=== PATIENT | male | born 1975 | race Caucasian/White ===

== ENCOUNTER → 2020-11-12 15:17 | Outpatient (CLI) | payer OTHER, SELFPAY ==
--- NOTE | ~2020-11-12 | XR_ITS ---
EXAMINATION: XR hip RT min 3V w AP pelvis INDICATION: Right hip pain TECHNIQUE: AP view the pelvis and two views of the right hip are obtained. COMPARISON: None available FINDINGS: Bone alignment is normal. There is no fracture. There is mild osteoarthritis of the hips.Th e soft tissues are unremarkable. IMPRESSION: 1. No acute osseous abnormality. Reviewed, dictated and finalized at location A.
== END ==
PROVIDERS: PCP Family Medicine; Visit Provider Family Medicine
DX: M25.559 Pain in unspecified hip (principal)
CPT/HCPCS: 73502

== ENCOUNTER 2023-12-31 17:42 | Emergency (ER) | payer OTHER, SELFPAY ==
[2023-12-31 18:08] VITALS: BP 136/74; PULSE 92; RESP 17; TEMP 36.3; O2SAT 99
[2023-12-31] MEDS: diazePAM INJ (*CRX) 10 MG/2 ML SYRINGE 5 MG IM (19:28)
--- NOTE | 2023-12-31 19:28 | ED.NECK ---
HPI - Neck Pain/Injury General Chief Complaint: Neck Pain/Injury Stated Complaint: PULLED MUSCLE IN MY HEAD Time Seen by Provider: 12/31/23 19:04 History of Present Illness HPI Narrative: patient has history of muscle spasms, woke up this morning and felt like he has slept wrong on his neck, pain more to the left side of his neck, went to work after taking ibuprofen, and steadily the pain has gotten worse and radiated to now he has a slight headache and some pain to his shoulder. No chest pain. No shortness of breath. No focal numbness or weakness. No difficulty with speech or walking. Related Data Allergies Allergy/AdvReac Type Severity Reaction Status Date / Time Sulfa (Sulfonamide Allergy Mild Swelling Verified 12/31/23 18:11 Antibiotics) SULFA Allergy Mild CHILD, Uncoded 10/13/23 08:23 FINGERS SWELLED Review of Systems Review of Systems: All systems reviewed & are unremarkable except as noted in HPI and below PMFSH Past Medical History Medical History Acute bilateral thoracic back pain Acute bronchitis Acute recurrent maxillary sinusitis Chest pain at rest Chronic otitis media of both ears with posterior perforation Cough Elevated BP without diagnosis of hypertension GERD (gastroesophageal reflux disease) Indigestion Multiple allergies Need for Tdap vaccination Other seasonal allergic rhinitis Stress at home Tuberculosis screening URI, acute Family History Family History Father Family history of coronary artery disease Other Acute myocardial infarction Cerebrovascular accident Hypertension Social History Social History Social History: Smoking status: Never smoker Second hand tobacco smoke exposure: No Alcohol intake: current Alcohol use details: Pt drinks once a month Substance use: never Substance use type: does not use Living arrangements: with family Occupation/Education: occupation Gender identity (if verbalized by the patient): Male Sexual Orientation (if Verbalized by the Patient): Straight or Heterosexual Exam Narrative: EXAMINATION OF ORGAN SYSTEMS/BODY AREAS: Constitutional: Vital signs per nursing GENERAL: Appears slightly uncomfortable, holding head very stiffly HEAD: Normal with no signs of head trauma. EYES: EOMI, conjunctiva normal, PERRL ENT: Hearing grossly intact NECK: Slight discomfort to palpation L posterior neck LUNGS: Nonlabored breathing. HEART: [Regular rate and rhythm], equal full bilateral carotid, radial, and DP pulses ABD: nondistended EXT: Normal range of motion SKIN: [No rashes or lesions.] NEURO: [Alert and oriented x 3. No gross focal sensory or strength deficits.] no facial droop. Clear speech, normal gait. PSYCH: Normal affect Course Vital Signs Vital signs: Vital Signs Temperature 97.4 F L 12/31/23 18:08 Pulse Rate 92 12/31/23 18:08 Respiratory Rate 17 12/31/23 18:08 Blood Pressure 136/74 12/31/23 18:08 Pulse Oximetry 99 12/31/23 18:08 Oxygen Delivery Room Air 12/31/23 18:08 Temperature 97.4 F L 12/31/23 18:08 Pulse Rate 92 12/31/23 18:08 Respiratory Rate 17 12/31/23 18:08 Blood Pressure 136/74 12/31/23 18:08 Pulse Oximetry 99 12/31/23 18:08 Oxygen Delivery Room Air 12/31/23 18:08 MDM - Neck Pain/Injury MDM Narrative Medical decision making narrative: 48-year-old male presenting with what feels like a neck spasm/ cramp left-sided neck, has had these before, worse with turning his head to the right, he has no neurologic deficits, no chest pain or shortness of breath or anything that would make me concerned for ACS or dissection, and no personal history of cardiac disease or aneurysms. No history of trauma or neck manipulation. he is given a dose of IM Valium here and on re-eval
[2023-12-31 20:07] VITALS: BP 116/87; PULSE 87; RESP 18; TEMP 36.3; O2SAT 97
== END 2023-12-31 20:09 | disposition home or self-care (01) ==
PROVIDERS: Emergency Provider Emergency Medicine; PCP Family Medicine
DX: S13.9XXA Sprain of joints and ligaments of unspecified parts of neck, initial encounter (principal); K21.9 Gastro-esophageal reflux disease without esophagitis; X50.9XXA Other and unspecified overexertion or strenuous movements or postures, initial encounter; Z79.899 Other long term (current) drug therapy
CPT/HCPCS: 96372; 99283; J3360

== ENCOUNTER 2024-08-28 08:26 | Outpatient (CLI) | payer OTHER, SELFPAY ==
--- OUTSIDE RECORDS SUMMARY | 2024-08-28 08:47 | XMS_ITS | Clinical Summary ---
Author Organization [facility] Address [address] [place] [address] Care Team Providers Care Project Development Engineer Name Role Phone Sara Nettles MD Primary Care Provider [phone] Active Problems No known active problems Immunizations Immunization Administration Dates Next Due (PFIZER)(12 YR UP) COVID-19 VACCINE - EMERGENCY USE AUTHORIZATION, MRNA, [id number](PF) 30 MCG/0.3 ML IM SUSP 08/17/2020,07/25/2020 Social History Tobacco Use Types Packs/Day Years Used Date Smoking Tobacco: Never Assessed Sex and Gender Information Value Date Recorded Sex Assigned at Not on file Legal Sex Male 10:39 PM CDT Gender Identity Not on file Sexual Orientation Not on file Last Filed Vital Signs Vital Sign Reading Time Taken Comments Blood Pressure 122/72 10/08/2023 7:44 AM CDT Pulse - - Temperature - - Respiratory Rate - - Oxygen Saturation - - Inhaled Oxygen Concentration - - Weight 123.8 kg (273 lb) 10/08/2023 7:44 AM CDT Height 182.9 cm (6') 10/08/2023 7:44 AM CDT Body Mass Index 37.03 10/08/2023 7:44 AM CDT Plan of Treatment Upcoming Encounters Date Type Department Care Team (Late st Contact Info) Description 10/06/2024 8:40 AM CDT Office Visit [facility] [address] [employer] [place] [address] Health Maintenance Due Date Last Done Comments Pre-Diabetes and Diabetes Screening 1976 DTAP/TDAP/TD VACCINES (1 - Tdap) 02/05/1995 HEPATITIS B VACCINES (1 of 3 - 19+ 3-dose series) 02/05/1995 COLORECTAL SCREENING 02/05/2021 Colorectal Cancer Screening 02/05/2021 FIT-DNA Q 3 years 02/05/2021 FIT/FOBT Q 1 year 02/05/2021 Flex Sig/CT Colonography Q 5 years 02/05/2021 INFLUENZA VACCINE (#1) 2023 COVID-19 Vaccine (2023- season) 2024, 07/25/2020 Insurance [facility] Address: [facility] [id number] [place] [address] [place] [address] Care Teams Project Development Engineer Relationship Specialty Start Date End Date Sara Nettles MD PCP - General Family Practice 06/17/21
--- OUTSIDE RECORDS SUMMARY | 2024-08-28 08:47 | XMS_ITS | Clinical Summary ---
Author Organization [facility] Address [address] [place] [address] Care Team Providers Care Wallpaper Inspector And Shipper Name Role Phone Unknown, Notinfile Primary Care Provider Unavail able Allergies Active Allergy Reactions Criticality Noted Date Comments Sulfa (Sulfonamide Antibiotics) Unknown 12/23 Medications No known medications Active Problems Problem Noted Date Diagnosed Date Chest pressure 01/18/2019 Social History Tobacco Use Types Packs/Day Years Used Date Smoking Tobacco: Never Smokeless Tobacco: Never Alcohol Use Standard Drinks/Week Comments Yes 0 (1 standard drink = 0.6 oz pur e alcohol) occassioanlly Personal Safety Answer Date Recorded Have you ever been in or are you currently in a harmful physical or emotional relationship or is someone making you feel afraid or unsafe? 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 Gender Identity Not on file Sexual Orientation Not on file Obstetrics History Last Filed Vital Signs Vital Sign Reading Time Taken Comments Blood Pressure 119/79 01/01/2024 11:30 PM CDT Pulse 67 01/01/2024 11:30 PM CDT Temperature 36.6 C (97.8 F) 01/01/2024 8:43 PM CDT Respiratory Rate 18 01/01/2024 11:30 PM CDT Oxygen Saturation 96% 01/01/2024 11:30 PM CDT Inhaled Oxygen Concentration - - Weight 120.2 kg (265 lb) 01/01/2024 8:43 PM CDT Height 182.9 cm (6') 01/01/2024 8:43 PM CDT Body Mass Index 35.94 01/01/2024 8:43 PM CDT Plan of Treatment Health Maintenance Due Date Last Done Comments Colon Cancer Screening-Colonoscopy 1975 Depression Screening 1975 Hepatitis C Screening 1976 DTaP/Tdap/Td Vaccine (1 - Tdap) 02/05/1987 Hepatitis B Screening 02/05/1994 Regular Well Visit/Exam 18-64 02/05/1994 Covid-19 Vaccine (4 - 2023-2 5 season) 2024 02/20/2022, 08/17/2020, 07/25/2020 Influenza Vaccine (#1) 2024 Pneumococcal vaccine <65 Aged Out No longer eligible based on patient's age to complete this topic Insurance [employer]YERGIANCE V[employer]K ALLEGIANCE Care Teams Wallpaper Inspector And Shipper Relationship Specialty Start Date End Date Unknown, Notinfile PCP - General 01/17/19
--- OUTSIDE RECORDS SUMMARY | 2024-08-28 08:47 | XMS_ITS | Referral Summary ---
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
--- NOTE | 2024-09-11 07:29 | WPDSLEEPSTUD ---
Sleep Study Date of Study: 08/28/24 Ordering Provider: ZECHARIAH Grayson Interpreting Physician: Janee Chavez MD Sleep Study Type: Polysomnogram Height: 1.83 m Weight: 117.934 kg Body Mass Index: 35.2 Neck Circumference (inches): 19 [place]: 15 Reason for Sleep Study Known obstructive sleep apnea; he is having repeat testing as his symptoms have worsened and he wants to try PAP therapy again. Sleep History Ritchie Stephenson is a 49-year-old man with obstructive sleep apnea. He has used CPAP in the past but in his sleep survey says that he can only get an hour of sleep before wakes him up. He is not currently on PAP therapy. He frequently awakens from sleep feeling short of breath. He rarely wakes at night with heartburn, belching or coughing.??He constantly snores loudly enough that others complain. He rarely has trouble sleeping when he has a cold. He rarely wakes up gasping for breath during the night. He constantly has breathing problems at night. He frequently sweats excessively at night. He rarely notices his heart pounding or beating irregularly during the night. He frequently falls asleep during the day. He occasionally falls asleep involuntarily, however never falls asleep while driving. He never experiences loss of muscle tone with strong emotion. He frequently has daytime difficulty at work due to excessive sleepiness. He is an electrician's assistant. He never feels paralyzed on waking or falling asleep. He never experiences vivid dreams upon waking or falling asleep. He never feels afraid of going to sleep. He never has nightmares. He occasionally recalls his dreams. He constantly has thoughts racing through his mind. He occasionally feels sad or depressed. He constantly feels anxiety. He frequently notices parts of his body jerk. He occasionally kicks during the night. He rarely feels crawling or aching feelings in his legs. He rarely feels leg pain at night. He rarely has morning jaw pain, occasionally grinds his teeth at night. He frequently feels bothered by pain during the day, is rarely awakened by pain during the night. He rarely wakes up feeling stiff in the morning, and he frequently wakes feeling sore or achy. He frequently awakens with pain in his neck, spine, or joints. Normal bedtime is between 9:30 pm and 10:00 p.m., falling asleep within minutes, waking 5-6 times at night. Wake time is 5:00 a.m.. He typically gets 7 hours of sleep per night. He takes naps in the day, and may feel refreshed afterwards. Habits:??Tobacco: never smoker Caffeine:3-4 daily. Alcohol: 1-2 per week Recreational substances: none PMFSH Past Medical History Medical History FREDY (obstructive sleep apnea) Elevated BP without diagnosis of hypertension URI, acute Tuberculosis screening Stress at home Other seasonal allergic rhinitis Need for Tdap vaccination Multiple allergies Indigestion Cough Chronic otitis media of both ears with posterior perforation Chest pain at rest Acute recurrent maxillary sinusitis Acute bronchitis Acute bilateral thoracic back pain GERD (gastroesophageal reflux disease) Family History Family History Father Family history of coronary artery disease Other Acute myocardial infarction Cerebrovascular accident Hypertension Social History Social History Social History: Smoking status: Never smoker Second hand tobacco smoke exposure: No Alcohol intake: current Alcohol use details: Pt drinks once a month Substance use: never Substance use type: does not use Do You Feel Safe in your Home?: Yes Lack of Transportation: No Lack of Food: Never True Current Housing: I Have Housing Concerned About Future Housing: No Difficulty Paying Gas/Electric Bills: No Difficulty Paying for Meds: No Currently Unemployed: No Education: Don't Know Difficulty w/ Childcare or Family Care: No Living arrangements: with family Occupation/Education: occupation Gender identity (if verbalized by the patient): Male Sexual Orientation (if Verbalized by the Patient): Straight or Heterosexual Medications Home Medications ?Medication ?Instructions ?Recorded ?Confirmed ?Type sodium chloride 0.65 % nasal spray 1 spray intranasal BID PRN nasal 03/21/20 07/31/24 Rx aerosol ([place] Nasal) congestion #15 mL atorvastatin 40 mg tablet 40 mg PO QHS #90 tabs 06/13/24 07/31/24 Rx lisinopril 20 See Rx Instructions .Route 06/13/24 07/31/24 Rx mg-hydrochlorothiazide 12.5 mg .COMPLEX #90 tabs tablet buspirone 5 mg tablet 5 mg PO BID PRN anxiety #60 tabs 06/20/24 07/31/24 Rx escitalopram oxalate 10 mg tablet 10 mg PO DAILY #90 tabs 06/20/24 07/31/24 Rx (Lexapro) omeprazole 40 mg capsule,delayed See Rx Instructions .Route 06/20/24 07/31/24 Rx release .COMPLEX #90 caps eszopiclone 2 mg tablet (Lunesta) 2 mg PO ONCE #1 tablet 07/31/24 07/31/24 Rx Sleep Procedure A full night polysomnogram using the Clicktree multi-channel system recorded the standard physiologic parameters including EEG, EOG, submentalis EMG, anterior tibialis EMG, EKG, body position, nasal and oral airflow using nasal pressure sensor and thermistor. Respiratory parameters of chest and abdominal movements were recorded with Respiratory Inductance Plethysmography belts. Oxygen saturation was recorded by pulse oximetry. Video monitoring was also performed. Sleep stages, periodic limb movements, and EEG arousals were scored in 30 second epochs according to the criteria of the AASM Scoring Manual. The Apnea-Hypopnea Index was calculated using [facility] guidelines for definition of hypopnea while scoring respiratory events. The tech did not record that the patient took a sleep aid at the beginning of the study. There is an order for Lunesta on his medication list. He had a long sleep latency of an hour. Sleep Architecture The total recording time was 484.8 minutes. The total sleep time was 210.0 minutes. Sleep latency was 60.7 minutes. REM latency was 283.5 minutes. Sleep efficiency was 43.3%. The patient had 98 awakenings for an awakening index of 28.0. Wake after sleep onset time was 214.0 minutes. The patient spent 101.5 minutes, 48.3% of total sleep time in Stage N1. The patient spent 99.0 minutes, 47.1% in Stage N2. The patient spent no time in Stage N3. The patient spent 9.5 minutes, 4.5% in Stage REM sleep. Respiratory Analysis The patient had 118 hypopneas, 165 obstructive apneas, no mixed apneas, and no central apneas for an overall Apnea Hypopnea Index of 76.6. The REM Apnea Hypopnea Index was 50.5. The NREM Apnea Hypopnea Index was 77.8. The patient had a Central Apnea Hypopnea Index of 0. There were no Respiratory Effort Related Arousals. The Respiratory Disturbance Index is 76.9 events per hour. There was no evidence of Derrick-Wiggins Respirations. Arousals There were 159 total arousals for an arousal index of 45.4. There were 34 spontaneous arousals for an index of 9.7. There were 124 arousals due to respiratory events for an index of 35.4. There were no arousals due to periodic limb movements. There were 1 arousals due to isolated limb movements for an index of 0.3. Periodic Limb Movements The patient had 3 isolated limb movements with an index of 0.9. The patient had no periodic limb movements. Patient had a total of 3 limb movements with a total limb movement index of 0.9. Oximetry Data The patient had an average oxygen saturation of 86.6% in sleep with a minimum oxygen saturation of 61% and a maximum oxygen saturation of 99%. The patient had 292 oxygen desaturations that were 4% or greater resulting in an Oxygen Desaturation Index of 83.4. The patient spent 168.1 minutes, 34.9% of total sleep time with an oxygen saturation below 88%. Snoring Profile Snoring was moderate and continuous. Cardiac Profile The EKG showed normal sinus rhythm, average pulse rate of 72.4 bpm with a minimum pulse of rate of 64 bpm and a maximum pulse rate of 94 bpm. No arrhythmias noted. EEG Profile Unremarkable, no evidence of seizures. Assessment and Plan Assessment and Plan (1) FREDY (obstructive sleep apnea): Code(s): G47.33 - Obstructive sleep apnea (adult) (pediatric) Status: Acute Assessment and Plan: This basic nocturnal polysomnogram on 08/28/2024 shows extremely severe obstructive sleep apnea, the apnea-hypopnea index is 76.6 with desaturation to 61% and moderate snoring. This study was not performed as a split due to the patient not meeting criteria early enough during the night. This patient he spent 168 minutes, 35% the night below 88%. He is not a candidate for auto PAP. This patient needs to have a full night CPAP titration in the sleep lab using a sleep aid if needed, to get to sleep and stay asleep. He had a very prolonged sleep latency of an hour. He needs to be instructed not to nap on the day of the study, and to have 10-12 hours of wakefulness prior to initiation of the study. The patient should be strongly advised not to drive while drowsy. The patient had Lunesta on his medication list but the tech did not record that the patient took this at the beginning of the study. If he took it he still had a sleep latency of 1 hour which indicates he napped during the day prior to testing. BMi is 35.3. Weight management is advised. Clinical data suggests that weight loss of 10% can reduce the severity of respiratory events and snoring and improve AHI by as much as 25%. Data The data obtained during this sleep study is adequate for interpretation. Certification This sleep study has been reviewed by a board certified sleep medicine physician.
[2024-09-11 09:48] VITALS: BMI 35.2
== END 2024-08-29 06:22 | disposition home or self-care (01) ==
LOC: ANHCSM 08:29
PROVIDERS: PCP Family Medicine; Visit Provider Physician Assistant
DX: G47.33 Obstructive sleep apnea (adult) (pediatric) (principal)
CPT/HCPCS: 95810

== ENCOUNTER 2024-11-01 07:39 | Outpatient (CLI) | payer OTHER, SELFPAY ==
--- OUTSIDE RECORDS SUMMARY | 2024-11-01 07:42 | XMS_ITS | Clinical Summary ---
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
--- OUTSIDE RECORDS SUMMARY | 2024-11-01 07:42 | XMS_ITS | Clinical Summary ---
Author Organization [facility] Office [facility] Address [address] [place] [address] Care Team Providers Care Territory Account Manager Name Role Phone David Santiago MD Primary Care Provider [phone] Active Problems No known active problems Encounters Date Type Department Care Team Description 10/09/2024 Results Follow-Up [email or web address] [place] [address] [place] [address] Tamra Saucedo MD TSH, LIPID PANEL, COMPREHENSIVE METABOLIC PANEL, CBC WITH DIFFERENTIAL 10/06/2024 8:40 AM CDT Office Visit [email or web address] [place] [address] [place] [address] Screening for condition (Primary Dx) 10/06/2024 Orders Only [email or web address] [place] [address] [place] [address] Lennie Mccartney, RN Screening for condition from Last 3 Months Immunizations Immunization Administration Dates Next Due (PFIZER)(12 YR UP) COVID-19 VACCINE - EMERGENCY USE AUTHORIZATION, MRNA, [id number](PF) 30 MCG/0.3 ML IM SUSP 08/17/2020,07/25/2020 Social History Tobacco Use Types Packs/Day Years Used Date Smoking Tobacco: Never Assessed Sex and Gender Information Value Date Recorded Sex Assigned at Not on file Legal Sex Male 10:39 PM CDT Gender Identity Not on file Sexual Orientation Not on file Last Filed Vital Signs Vital Sign Reading Time Taken Comments Blood Pressure 108/60 10/06/2024 8:47 AM CDT Pulse - - Temperature - - Respiratory Rate - - Oxygen Saturation - - Inhaled Oxygen Concentration - - Weight 125.6 kg (277 lb) 10/06/2024 8:47 AM CDT Height 182.9 cm (6') 10/06/2024 8:47 AM CDT Body Mass Index 37.57 10/06/2024 8:47 AM CDT Plan of Treatment Health Maintenance Due Date Last Done Comments Pre-Diabetes and Diabetes Screening 1976 DTAP/TDAP/TD VACCINES (1 - Tdap) 02/05/1995 HEPATITIS B VACCINES (1 of 3 - 19+ 3-dose series) 02/05/1995 COLORECTAL SCREENING 02/05/2021 Colorectal Cancer Screening 02/05/2021 FIT-DNA Q 3 years 02/05/2021 FIT/FOBT Q 1 year 02/05/2021 Flex Sig/CT Colonography Q 5 years 02/05/2021 INFLUENZA VACCINE (#1) 2023 COVID-19 Vaccine ( season) 2024, 07/25/2020 Procedures Procedure Name Priority Date/Time Associated Diagnosis Comments CBC WITH DIFFERENTIAL Routine 10/06/2024 8:42 AM CDT Screening for condition COMPREHENSIVE METABOLIC PANEL Routine 10/06/2024 8:42 AM CDT Screening for condition LIPID PANEL Routine 10/06/2024 8:42 AM CDT Screening for condition TSH Routine 10/06/2024 8:42 AM CDT Screening for condition from Last 3 Months Results * CBC WITH DIFFERENTIAL (10/06/2024 8:42 AM CDT) WBC 6.4 3.8 - 10.8 Thousand/u L [facility] RBC 5.10 4.20 - 5.80 Million/uL [facility] HEMOGLOBIN 14.4 13.2 - 17.1 g/dL [facility] HEMATOCRIT 43.5 38.5 - 50.0 % [facility] MCV 85.3 80.0 - 100.0 fL [facility] MCH 28.2 27.0 - 33.0 pg [facility] MCHC 33.1 32.0 - 36.0 g/dL [facility] Comment: For adults, a slight decrease in the calculated MCHC value (in the range of 30 to 32 g/dL) is most likely not clinically significant; however, it should be interpreted with caution in correlation with other red cell parameters and the patient's clinical condition. RDW 13.4 11.0 - 15.0 % [facility] PLATELETS 341 140 - 400 Thousand/u L [facility] MPV 11.5 7.5 - 12.5 fL [facility] NEUTROPHIL ABSOLUTE 3,392 1,500 - 7,800 cells/uL [facility] LYMPHOCYTE ABSOLUTE 1,926 850 - 3,900 cells/uL [facility] MONOCYTE ABSOLUTE 659 200 - 950 cells/uL [facility] EOSINOPHIL ABSOLUTE 352 15 - 500 cells/uL [facility] BASOPHILS ABSOLUTE 70 0 - 200 cells/uL [facility] NEUTROPHIL 53 % [facility] LYMPHOCYTES 30.1 % [facility] MONOCYTE 10.3 % [facility] EOSINOPHILS 5.5 % [facility] BASOPHILS 1.1 % [facility] Comment: Test Performed at: [place] [address] [place] [address] [facility] Blood 10/06/2024 8:42 AM CDT 10/07/2024 12:54 AM CDT Tamra Saucedo MD HEMATOLOGY ORDERABLES Final Re sult [facility] [phone] [place] [address] [address] [place] [address] * TSH (10/06/2024 8:42 AM CDT) TSH 1.31 0.40 - 4.50 mIU/L [facility] Comment: Test Performed at: [place] [address] [address] [place] [address] [facility] Blood 10/06/2024 8:42 AM CDT 10/07/2024 12:54 AM CDT us Tamra Saucedo MD CHEMISTRY ORDERABLES Final Res ult [facility] [phone] [facility] [place] [address] [place] [address] * (ABNORMAL) LIPID PANEL (10/06/2024 8:42 AM CDT) CHOLESTEROL 160 <200 mg/dL [facility] HDL 32(L) > OR = 40 mg/dL [facility] TRIGLYCERIDE 244(H) <150 mg/dL [facility] Comment: If a non-fasting specimen was collected, consider repeat triglyceride testing on a fasting specimen if clinically indicated. Shawn et al. J. of Clin. Lipidol. 2015;9:129-169. LDL CALCULATED 94 mg/dL (calc) [facility] Comment: Reference range: <100 Desirable range <100 mg/dL for primary prevention; <70 mg/dL for patients with CHD or diabetic patients with > or = 2 CHD risk factors. LDL-C is now calculated using the Alireza-Rui calculation, which is a validated novel method providing better accuracy than the Friedewald equation in the estimation of LDL-C. Alireza AMBRIZ et al. JESSICA. 2013;310(19): 8073-4209 (http://education.Appboy.FlockTAG/faq/AXD318) CHOL/HDL RATIO 5.0(H) <5.0 (calc) [facility] NON-HDL CHOLESTEROL 128 <130 mg/dL (calc) [facility] Comment: For patients with diabetes plus 1 major ASCVD risk factor, treating to a non-HDL-C goal of <100 mg/dL (LDL-C of <70 mg/dL) is considered a therapeutic option. Test Performed at: [facility] [address] [address] [place] [phone] [facility] Blood 10/06/2024 8:42 AM CDT 10/07/2024 12:54 AM CDT us Tamra Saucedo MD CHEMISTRY ORDERABLES Final Res ult [facility] [phone] [facility] [place] [address] [place] [address] * (ABNORMAL) COMPREHENSIVE METABOLIC PANEL (10/06/2024 8:42 AM CDT) GLUCOSE 91 65 - 99 mg/dL [facility] Comment: Fasting reference interval BUN 25 7 - 25 mg/dL [facility] CREATININE 1.10 0.60 - 1.29 mg/dL [facility] GFR 83 > OR = 60 mL/min/1. 73m2 [facility] BUN/CREAT RATIO SEE NOTE: (calc) [facility] Comment: Not Reported: BUN and Creatinine are within reference range. SODIUM 130(L) 135 - 146 mmol/L [facility] POTASSIUM 4.8 3.5 - 5.3 mmol/L [facility] CHLORIDE 96(L) 98 - 110 mmol/L [facility] CO2 24 20 - 32 mmol/L [facility] CALCIUM 9.6 8.6 - 10.3 mg/dL [facility] TOTAL PROTEIN 7.6 6.1 - 8.1 g/dL [facility] ALBUMIN 4.4 3.6 - 5.1 g/dL [facility] GLOBULIN 3.2 1.9 - 3.7 g/dL (calc) [facility] ALBUMIN/GLOBULIN RATIO 1.4 1.0 - 2.5 (calc) [facility] BILIRUBIN TOTAL 0.7 0.2 - 1.2 mg/dL [facility] ALKALINE PHOSPHATASE 88 36 - 130 U/L [facility] AST 17 10 - 40 U/L [facility] ALT 32 9 - 46 U/L [facility] Comment: Test Performed at: [place] [address] [address] [place] [phone] [facility] Blood 10/06/2024 8:42 AM CDT 10/07/2024 12:54 AM CDT us Tamra Saucedo MD CHEMISTRY ORDERABLES Final Res ult [facility] [phone] [facility] [address] [place] [address] from Last 3 Months Insurance [employer]ESS Care Teams Territory Account Manager Relationship Specialty Start Date End Date David Santiago MD [address] [facility] [address] [place] [address] PCP - General Family Practice 10/09/24
--- OUTSIDE RECORDS SUMMARY | 2024-11-01 07:42 | XMS_ITS | Encounter Summary ---
Author Organization [facility] Address [address] [place] [address] Care Team Providers Care Rod Filler Name Role Phone David Santiago MD Primary Care Provider [phone] Encounter Details Date Type Department Care Team (Late st Contact Info) Description 10/09/2024 Results Follow-Up [facility] [place] [address] [place] [address] Tamra Saucedo MD [address] [place] [address] TSH, LIPID PANEL, COMPREHENSIVE METABOLIC PANEL, CBC WITH DIFFERENTIAL Social History Tobacco Use Types Packs/Day Years Used Date Smoking Tobacco: Never Assessed Sex and Gender Information Value Date Recorded Sex Assigned at Not on file Legal Sex Male 10:39 PM CDT Gender Identity Not on file Sexual Orientation Not on file documented as of this encounter Miscellaneous Notes * Result Encounter Note - Ramya Avendaño RN - 10/09/2024 9:44 AM CDT Called patient and relayed message regarding lab results. Patient verbalized understanding. documented in this encounter Plan of Treatment Scheduled Orders Name Type Priority Associated Diagnoses Orde r Schedule BASIC METABOLIC PANEL Lab Routine Hyponatremia Expected: 10/09/2024, Expires: 10/09/2025 documented as of this encounter Visit Diagnoses Diagnosis Hyponatremia- Primary Hyposmolality and/or hyponatremia documented in this encounter Care Teams Rod Filler Relationship Specialty Start Date End Date David Santiago MD [address] [facility] [address] [facility] [address] [place] [address] PCP - General Family Practice 10/09/24 documented as of this encounter
--- OUTSIDE RECORDS SUMMARY | 2024-11-01 07:42 | XMS_ITS | Referral Summary ---
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
--- NOTE | 2024-11-27 16:37 | P.SLEEP_ITS ---
Sleep Study Date of Study: 11/01/24 Ordering Provider: ZECHARIAH Grayson Interpreting Physician: Orquidea Archuleta DO Sleep Study Type: CPAP Titration Height: 1.83 m Weight: 122.47 kg Body Mass Index: 36.6 Neck Circumference (inches): 20 [place]: 15 Reason for Sleep Study Polysomnogram on 08/28/2024 showed an overall AHI of 76.6 with desaturation down to 61%. Sleep History Ritchie Stephenson is a 49-year-old man with obstructive sleep apnea. He has used CPAP in the past but in his sleep survey says that he can only get an hour of sleep before wakes him up. He is not currently on PAP therapy. He frequently a wakens from sleep feeling short of breath. He rarely wakes at night with heartburn, belching or coughing.??He constantly snores loudly enough that others complain. He rarely has trouble sleeping when he has a cold. He rarely wakes up gasping for breath during the night. He constantly has breathing problems at night. He frequently sweats excessively at night. He rarely notices his heart pounding or beating irregularly during the night. He frequently falls asleep during the day. He occasionally falls asleep involuntarily, however never falls asleep while driving. He never experiences loss of muscle tone with strong emotion. He frequently has daytime difficulty at work due to excessive sleepiness. He is an traveling electrician. He never feels paralyzed on waking or falling asleep. He never experiences vivid dreams upon waking or falling asleep. He never feels afraid of going to sleep. He never has nightmares. He occasion ally recalls his dreams. He constantly has thoughts racing through his mind. He occasionally feels sad or depressed. He constantly feels anxiety. He frequently notices parts of his body jerk. He occasionally kicks during the night. He rarely feels crawling or aching feelings in his legs. He rarely feels leg pain at night. He rarely has morning jaw pain, occasionally grinds his teeth at night. He frequently feels bothered by pain during the day, is rarely awakened by pain during the night. He rarely wakes up feeling stiff in the morning, and he frequently wakes feeling sore or achy. He frequently awakens with pain in his neck, spine, or joints. Normal bedtime is between 9:30 pm and 10:00 p.m., falling asleep within minutes, waking 5-6 times at night. Wake time is 5:00 a.m.. He typically gets 7 hours of sleep per night. He takes naps in the day, and may feel refreshed afterwards. Habits:??Tobacco: never smoker Caffeine:3-4 daily. Alcohol: 1-2 per week Recreational substances: none [facility] Past Medical History Medical History FREDY (obstructive sleep apnea) Elevated BP without diagnosis of hypertension URI, acute Tuberculosis screening Stress at home Other seasonal allergic rhinitis Need for Tdap vaccination Multiple allergies Indigestion Cough Chronic otitis media of both ears with posterior perforation Chest pain at rest Acute recurrent maxillary sinusitis Acute bronchitis Acute bilateral thoracic back pain GERD (gastroesophageal reflux disease) Family History Family History Father Family history of coronary artery disease Other Acute myocardial infarction Cerebrovascular accident Hypertension Social History Social History Social History: Smoking status: Never smoker Second hand tobacco smoke exposure: No Alcohol intake: current Alcohol use details: Pt drinks once a month Substance use: never Substance use type: does not use Do You Feel Safe in your Home?: Yes Lack of Transportation: No Lack of Food: Never True Current Housing: I Have Housing Concerned About Future Housing: No Difficulty Paying Gas/Electric Bills: No Difficulty Paying for Meds: No Currently Unemployed: No Education: Don't Know Difficulty w/ Childcare or Family Care: No Living arrangements: with family Occupation/Education: occupation Gender identity (if verbalized by the patient): Male Sexual Orientation (if Verbalized by the Patient): Straight or Heterosexual Medications Home Medications ?Medication ?Instructions ?Recorded ?Confirmed ?Type sodium chloride 0.65 % nasal spray 1 spray intranasal BID PRN nasal 03/21/20 07/31/24 Rx aerosol ([place] Nasal) congestion #15 mL buspirone 5 mg tablet 5 mg PO BID PRN anxiety #60 tabs 06/20/24 07/31/24 Rx eszopiclone 2 mg tablet (Lunesta) 2 mg PO ONCE #1 tablet 09/11/24 Rx atorvastatin 40 mg tablet 40 mg PO QHS #90 tabs 09/12/24 Rx escitalopram oxalate 10 mg tablet 10 mg PO DAILY #90 tabs 09/12/24 Rx (Lexapro) lisinopril 20 See Rx Instructions .Route 09/12/24 Rx mg-hydrochlorothiazide 12.5 mg .COMPLEX #90 tabs tablet omeprazole 40 mg capsule,delayed See Rx Instructions .Route 09/12/24 Rx release .COMPLEX #90 caps Sleep Procedure A full night CPAP/BPAP Titration using the [employer] II SleepBl[employer] Studio multi-channel system recorded the standard physiologic parameters including EEG, EOG, submentalis EMG, anterior tibialis EMG, EKG, body position, nasal and oral airflow using nasal pressure sensor and thermistor.? Respiratory parameters of chest and abdominal movements were recorded with Respiratory Inductance Plethysmography belts. Oxygen saturation was recorded by pulse oximetry. Video monitoring was also performed. Sleep stages, periodic limb movements, and EEG arousals were scored in 30 second epochs according to the criteria of the AASM Scoring Manual. The Apnea-Hypopnea Index was calculated using CMS guidelines for definition of hypopnea with 4% O2 desaturations while scoring respiratory events. Sleep Architecture The total recording time was 514.7 minutes.? The total sleep time was 378.0 minutes. Sleep latency was 30.4 minutes. REM latency was 117.0 minutes. Sleep efficiency was 73.4%. The patient had 38 awakenings for an awakening index of 6.0. Wake after Sleep Onset time was 106.5 minutes. The patient spent 48.0 minutes, 12.7% of total sleep time in Stage N1. The patient spent 253.0 minutes, 66.9% in Stage N2. The patient spent 12.0 minutes, 3.2% in Stage N3. The patient spent 65.0 minutes, 17.2% in Stage REM. Respiratory Analysis The patient had 71 hypopneas, 72 obstructive apneas, 1 mixed apnea and 2 central apneas for an overall Apnea Hypopnea Index of 23.2 events per hour. The REM Apnea Hypopnea Index was 5.5. The NREM Apnea Hypopnea Index was 26.8. The patient had a Central Apnea Hypopnea Index of 0.3. There was no evidence of Derrick-Wiggins Respirations. The patient was started on CPAP 5 cm H2O and titrated to BPAP 26/19 cm H2O due to obstructive apneas and hypopneas. The patient was able to fall asleep starting on CPAP 5 cm H2O. The patient was able to achieve REM sleep starting on CPAP 13 cm H2O. The patient was able to achieve a residual AHI less than 5 in the supine position on the final pressure setting. On BPAP 26/19 cm H2O, the patient spent 61.5 minutes in NREM and 0 minutes in REM with 3 obstructive apneas and 2 hypopneas, resulting in an AHI of 4.9. The patient had a sleep efficiency of 96.9% on this pressure setting. Arousals There were 149 total arousals for an arousal index of 23.7. There were 53 spontaneous arousals for an index of 8.4. ?There were 70 arousals due to respiratory events for an index of 11.1. There were 12 arousals due to periodic limb movements for an index of 1.9.? There were 15 arousals due to isolated limb movements for an index of 2.4. Periodic Limb Movements The patient had 51 isolated limb movements with an index of 8.1. The patient had 203 periodic limb movements with index of 32.2, which is elevated (normal < 15). Patient had a total of 254 limb movements with a total limb movement index of 40.3. Oximetry Data The patient had an average oxygen saturation of 93.4% in sleep with a minimum oxygen saturation of 59.0% and a maximum oxygen saturation of 98.0%. The patient had 148 oxygen desaturations that were 4% or greater resulting in an Oxygen Desaturation Index of 23.5.? The patient spent 39.9 minutes, 7.8% of total sleep time with an oxygen saturation below 88%. Snoring Profile Moderate snoring was present in the beginning of the study. The snoring resolved once the patient was titrated to BPAP 24/18 cm H2O. Cardiac Profile The EKG showed normal sinus rhythm. No arrhythmias or premature beats were seen. The patient had an average pulse rate of 71.6 bpm with a minimum pulse rate of 64.0 bpm and a maximum pulse rate of 86.0 bpm. ? EEG Profile No signs of seizure activity seen. Assessment and Plan Assessment and Plan (1) FREDY (obstructive sleep apnea): Code(s): G47.33 - Obstructive sleep apnea (adult) (pediatric) Status: Acute Assessment and Plan: The patient was started on CPAP 5 cm H2O and titrated to BPAP 26/19 cm H2O due to obstructive apneas and hypopneas. The patient's sleep apnea resolved on the final pressure setting. I recommend that the patient be prescribed BPAP 26/19 cm H2O, size medium Resmed AirTouch F20 full face mask, BPAP filters/tubing and heated humidity. This should be used with all episodes of sleep.? Compliance should be reviewed within 31-90 days of starting therapy for usage greater than 4 hours per night greater than 70% of the nights. The patient should be asked about symptoms such as?excessive daytime sleepiness, quality of sleep, decreased nocturia, increased?mental functioning such as memory, mood, and concentration. The patient had an excessive amount of periodic limb movements seen during this study. The frequency of the periodic limb movements decreased drastically once the patient was titrated to the optimal pressure setting. Data The data obtained during this sleep study is adequate for interpretation. Certification This sleep study has been reviewed by a board certified sleep medicine physician.
== END 2024-11-02 07:05 | disposition home or self-care (01) ==
LOC: ANHCSM 07:40
PROVIDERS: PCP Family Medicine; Visit Provider Physician Assistant
DX: G47.33 Obstructive sleep apnea (adult) (pediatric) (principal); I10 Essential (primary) hypertension; F39 Unspecified mood [affective] disorder
CPT/HCPCS: 95811

== ENCOUNTER 2025-02-23 02:39 | Day surgery (SDC) | payer OTHER, SELFPAY ==
[2025-02-12 12:50] VITALS: BMI 35.3
--- OUTSIDE RECORDS SUMMARY | 2025-02-23 02:41 | XMS_ITS | Clinical Summary ---
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
[2025-02-23 10:01] VITALS: BP 114/81; PULSE 98; RESP 18; TEMP 36.3; O2SAT 98
[2025-02-23] MEDS: LACTATED RINGERS 1,000 ML 150 ML IV CONT (10:12)
--- NOTE | 2025-02-23 11:17 | PM.HPGS ---
History of Present Illness History of Present Illness Consent: Risks, benefits, and alternatives have been discussed and questions answered. Patient agrees to proceed with procedure. Chief complaint: GERD/screening Narrative: Ritchie Stephenson is a 50 year old male here for first egd/colonoscopy, he has gerd well controlled on ppi Review of Systems Review of Systems: All systems reviewed & are unremarkable except as noted in HPI and below PMFSH Past Medical History Medical History FREDY (obstructive sleep apnea) Elevated BP without diagnosis of hypertension URI, acute Tuberculosis screening Stress at home Other seasonal allergic rhinitis Need for Tdap vaccination Multiple allergies Indigestion Cough Chronic otitis media of both ears with posterior perforation Chest pain at rest Acute recurrent maxillary sinusitis Acute bronchitis Acute bilateral thoracic back pain GERD (gastroesophageal reflux disease) Family History Family History Father Family history of coronary artery disease Other Acute myocardial infarction Cerebrovascular accident Hypertension Social History Social History Social History: Smoking status: Never smoker Second hand tobacco smoke exposure: No Alcohol intake: current Alcohol use details: Pt drinks once a month Substance use: never Substance use type: does not use Do You Feel Safe in your Home?: Yes Lack of Transportation: No Lack of Food: Never True Current Housing: I Have Housing Concerned About Future Housing: No Difficulty Paying Gas/Electric Bills: No Difficulty Paying for Meds: No Currently Unemployed: No Education: Don't Know Difficulty w/ Childcare or Family Care: No Living arrangements: with family Occupation/Education: occupation Gender identity (if verbalized by the patient): Male Sexual Orientation (if Verbalized by the Patient): Straight or Heterosexual Meds Home Medications and Allergies Home Medications ?Medication ?Instructions ?Recorded ?Confirmed ?Type sodium chloride 0.65 % nasal spray 1 spray intranasal BID PRN nasal 03/21/20 02/12/25 Rx aerosol ([place] Nasal) congestion #15 mL escitalopram oxalate 10 mg tablet 10 mg PO DAILY #90 tabs 09/12/24 02/23/25 Rx (Lexapro) atorvastatin 40 mg tablet 40 mg PO QHS #90 tabs 12/18/24 02/23/25 Rx buspirone 5 mg tablet 5 mg PO BID PRN anxiety #60 tabs 12/18/24 02/23/25 Rx lisinopril 20 See Rx Instructions .Route 12/18/24 02/23/25 Rx mg-hydrochlorothiazide 12.5 mg .COMPLEX #90 tabs tablet omeprazole 40 mg capsule,delayed See Rx Instructions .Route 12/18/24 02/23/25 Rx release .COMPLEX #90 caps semaglutide (weight loss) 0.25 0.25 mg (0.5 mL) subcut WEEKLY #2 01/31/25 02/23/25 Rx mg/0.5 mL subcutaneous pen mL injector (Artomatix) Allergies Allergy/AdvReac Type Severity Reaction Status Date / Time Sulfa (Sulfonamide Allergy Mild Swelling Verified 02/23/25 09:58 Antibiotics) SULFA Allergy Mild CHILD, Uncoded 01/02/25 08:08 FINGERS SWELLED Vital Signs Vital Signs - 24 hr 02/23/25 10:01 Temperature 97.4 F L Pulse Rate 98 Respiratory Rate 18 Blood Pressure 114/81 Pulse Oximetry 98 Oxygen Delivery Room Air Exam Const: General: comfortable and no acute distress HENMT: Face/Nose/Sinus: Normal nares present Eyes: General: appearance normal, both eyes and all related structures Resp: Auscultation: clear to auscultation bilaterally Cardio: Rate: regular rate Rhythm: regular rhythm GI: Inspection: non-distended GI Palp: Yes Soft to palpation Skin: General skin exam: normal color Extrem: General: normal to inspection Psych: Mental Status: mental status grossly normal Assessment and Plan Assessment and plan (1) GERD (gastroesophageal reflux disease): Code(s): K21.9 - Gastro-esophageal reflux disease without esophagitis Status: Acute Assessment and Plan: egd with bx (2) Colon cancer screening: Code(s): Z12.11 - Encounter for screening for malignant neoplasm of colon Status: Acute Assessment and Plan: colonoscopy
--- NOTE | 2025-02-23 11:19 | P.PNAN_ITS ---
Anes - Initial Pre Proc Eval Procedure: Operation Date: 02/23/25 11:00 Proposed Procedures p EGD & Screening Colonoscopy - Jhon Valle MD Date/Time: 02/23/25 11:19 Surgeon: Jhon Valle MD Pre Op Diagnosis: GERD/screening Patient Data Age: 50 Gender: M Height: 1.83 m Weight: 116.2 kg Last Vital Signs Temp 97.4 F L 02/23/25 10:01 Pulse 98 02/23/25 10:01 Resp 18 02/23/25 10:01 BP 114/81 02/23/25 10:01 Pulse Ox 98 02/23/25 10:01 O2 Del Method Room Air 02/23/25 10:01 Allergies Allergy/AdvReac Type Severity Reaction Status Date / Time Sulfa (Sulfonamide Allergy Mild Swelling Verified 02/23/25 09:58 Antibiotics) SULFA Allergy Mild CHILD, Uncoded 01/02/25 08:08 FINGERS SWELLED Home Medications ?Medication ?Instructions ?Recorded ?Confirmed ?Type sodium chloride 0.65 % nasal spray 1 spray intranasal BID PRN nasal 03/21/20 02/12/25 Rx aerosol ([place] Nasal) congestion #15 mL escitalopram oxalate 10 mg tablet 10 mg PO DAILY #90 t abs 09/12/24 02/23/25 Rx (Lexapro) atorvastatin 40 mg tablet 40 mg PO QHS #90 tabs 02/23/25 Rx buspirone 5 mg tablet 5 mg PO BID PRN anxiety #60 tabs 12/18/24 02/23/25 Rx lisinopril 20 See Rx Instructions .Route 0 12/18/24 02/23/25 Rx mg-hydrochlorothiazide 12.5 mg .COMPLEX #90 tabs tablet omeprazole 40 mg capsule,delayed See Rx Instructions . Route 12/18/24 02/23/25 Rx release .COMPLEX #90 caps semaglutide (weight loss) 0.25 0.25 mg (0.5 mL) subcut WEEKLY #2 01/31/25 02/23/25 Rx mg/0.5 mL subcutaneous pen mL injector (Wegovy) Patient hx anesthesia problems: none Family hx anesthesia problems: none Results Review: All pre-operative results and documents have been reviewed as part of the pre- operative evaluation. [facility] Past Medical History Medical History FREDY (obstructive sleep apnea) Elevated BP without diagnosis of hypertension URI, acute Tuberculosis screening Stress at home Other seasonal allergic rhinitis Need for Tdap vaccination Multiple allergies Indigestion Cough Chronic otitis media of both ears with posterior perforation Chest pain at rest Acute recurrent maxillary sinusitis Acute bronchitis Acute bilateral thoracic back pain GERD (gastroesophageal reflux disease) Family History Family History Father Family history of coronary artery disease Other Acute myocardial infarction Cerebrovascular accident Hypertension Social History Social History Social History: Smoking status: Never smoker Second hand tobacco smoke exposure: No Alcohol intake: current Alcohol use details: Pt drinks once a month Substance use: never Substance use type: does not use Do You Feel Safe in your Home?: Yes Lack of Transportation: No Lack of Food: Never True Current Housing: I Have Housing Concerned About Future Housing: No Difficulty Paying Gas/Electric Bills: No Difficulty Paying for Meds: No Currently Unemployed: No Education: Don't Know Difficulty w/ Childcare or Family Care: No Living arrangements: with family Occupation/Education: occupation Gender identity (if verbalized by the patient): Male Sexual Orientation (if Verbalized by the Patient): Straight or Heterosexual Anes - Eval Final PreProcedure Day of Procedure 02/23/25 11:19 Patient weight: obese Lungs: normal air movement Airway: Mallampati scale class II and special considerations (L lower tooth lo ose, one is missing. ) Neurological: alert and oriented Last oral intake: >/= 8 hours ASA classification: III Emergent: no Anesthetic plan: proceed Anesthesia type and monitoring: general GIVS and standard monitoring Results Review: All pre-operative results and documents have been reviewed as part of the pre- operative evaluation. HTN, hyperlipidemia, FREDY no CPAP, GERD. Informed Consent: The patient's anesthetic plan and its attendant risks and benefits were discussed with the patient/family/POA. Questions were solicited and answers provided to the satisfaction of the patient/family/POA.
--- NOTE | 2025-02-23 11:35 | SUR.OPER ---
EGD end 1130 COLONOSCOPY START 1131
--- NOTE | 2025-02-23 11:47 | SUR.OPER ---
Redness noted to Bovie site at right upper scapula postoperatively.
[2025-02-23 11:49] VITALS: BP 100/64; PULSE 84; RESP 20; O2SAT 98
--- NOTE | 2025-02-23 11:50 | S_PTH ---
PATIENT: Ritchie Stephenson LOC: [facility]#:[id number] AGE/SX: 50/M ROOM: RE02/23/[address]: Jhon Valle MD : [id number] BED: DIS: 02/23/2025 SPEC #: [id number] RECD: 02/23/25 12:41 STATUS: GISELLE REGogo #: [id number] [place]: 02/23/25 11:[address]: Jhon Valle DEPT: [facility] Surgical RECD BY: Jose Gibson ENTERED: 02/23/25 12:42 SP TYPE: Surgical OTHR DR: David Santiago MD Tissues: A - Gastric Biopsy B - Gastric Polyp C - Colon Polypectomy Procedures: Hematoxylin and Eosin Stain Gross and Microscopic Level 4
[2025-02-23 11:59] VITALS: BP 100/65; PULSE 81; RESP 19; O2SAT 97
[2025-02-23 12:09] VITALS: BP 115/61; PULSE 84; RESP 20; O2SAT 97
== END 2025-02-23 12:19 | disposition home or self-care (01) ==
PROVIDERS: PCP Family Medicine; Referring Provider Family Medicine; Visit Provider Internal Medicine Gastroenterology
PROC: 0DJ08ZZ Inspection of Upper Intestinal Tract, Via Natural or Artificial Opening Endoscopic (ICD-10-PCS; CPT 45378; principal; 2025-02-23 11:00)
DX: Z12.11 Encounter for screening for malignant neoplasm of colon (principal); D12.5 Benign neoplasm of sigmoid colon; K64.8 Other hemorrhoids; K29.50 Unspecified chronic gastritis without bleeding; K21.9 Gastro-esophageal reflux disease without esophagitis; K44.9 Diaphragmatic hernia without obstruction or gangrene; K31.7 Polyp of stomach and duodenum; E66.9 Obesity, unspecified; Z68.34 Body mass index [BMI] 34.0-34.9, adult
CPT/HCPCS: 45385; 43239; 43251; 88305; J2003; J2704; J7120